=== PATIENT | male | born 1950 | race Caucasian/White ===

== ENCOUNTER 2016-11-12 19:03 | Emergency (ER) | payer MEDICARE, BC ==
[~2016-11-12] VITALS: Ht 177.8 cm; Wt 127.0 kg
[~2016-11-12 19:03] MED LIST: FLOMAX 0.4MG C0.4 MG PO; HYDROCODONE 7.51 TAB PO; NAPROXEN SODIU500 MG PO
[2016-11-12] MEDS ORDERED: ASPIRIN325 M1 PO (19:28)
[2016-11-12] MEDS ORDERED: PREDNISONE 20MG20 MG PO (21:33)
--- NOTE | 2016-11-12 21:34 | Emergency Room Report ---
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 PT RPTS HE FELL ONTO HIS RIGHT SHOULDER. PT DENIES HITTING HEAD OR LOC. 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 N Clinical Suspician of Infection? N Mental Status: 1 - Regular (Normal Baseline) Sepsis Risk:Low Sepsis Risk Have you (or family members/close friends) recently traveled outside the [place]? N If Yes, where/when: Have you had exposure to infectious disease within the past month? N TB? Other? Specify: Source patient, RN notes reviewed, family, old records Exam Limitations no limitations Comment fall in mud tonight with pain rt shoulder with dec rom - he took off shirt and felt pop and now much better Cardiac Chest Pain Chest pain indicative of cardiac No Timing/Duration this evening Severity moderate ALLERGIES Coded Allergies: No Known Allergies (11/12/16) Home Medications Reported Medications Aspirin 325 MG PO DAILY History Medical History General CAD? No Angina: No ID: No Hypertension? No Hyperlipidemia? No CHF? No DVT? No PE? No COPD? No Asthma? Yes Anemia? No GERD? No Gastric ulcers? No GI Bleed? No Hernia? No Thyroid Problems? No Hypothyroidism? No CVA? No Seizures? No Diabetes? No Renal Insuffiency? No End Stage Renal Disease? No UTI? Yes Stones? No BPH? No GB Disease: No Nephritic Syndrome? No Asplenia? No Hepatitis? No Sickle Cell Disease? No Arthritis? No Migraines? No Cataracts? No Glaucoma? No MRSA? No HIV? No TB? No Anxiety? No Depression? No Cancer? No More? Yes Additional hx: PANCREATITIS Immunization Hx DT/Tetanus 5-10 YRS Flu NEVER Pneumonia 5-10 YRS Surgical Hx Previous Surgery?Y RIGHT ANKLE SURGERY RIGHT EYE SURGERY Family History Family Hx Diabetes Yes CAD No Hypertension Yes Hyperlipidemia No Cancer Yes TB No Social History Smoking Hx Smoker: Former Smoker Tobacco: No Alcohol Alcohol: No Drugs none Review of Systems All Other Systems Reviewed and Negative Constitutional denies fever Eyes denies drainage ENT denies: ear pain, epistaxis, throat pain. Respiratory denies cough, denies shortness of breath, denies wheezing Cardiovascular denies chest pain, denies palpitations, denies syncope Gastrointestinal denies abdominal pain, denies diarrhea, denies vomiting Genitourinary denies: dysuria, frequency, hesitancy, hematuria. Musculoskeletal see HPI, denies back pain, joint pain, denies joint swelling, denies neck pain Skin denies rash Psychiatric/Neurological denies headache, denies seizure Physical Exam Vital Signs Vital Signs Date Time Temp Pulse Resp B/P Pulse O2 O2 Flow FiO2 Ox Delivery Rate 11/12 2052 99.9 61 18 127/79 99 11/12 1920 98.0 71 18 166/96 96 11/12 190 98.0 71 18 16696 96 - WBC >12,000 or <4,000 or 10% bands? 2 or more SIRS Criteria Met? B/P:127/79 MAP:119 Creatinine >2.0? UA output<0.5ml/kg/hr for 2 hrs? Platelet count >100,000? Lactate >2.0mmol/1? INR >1.2 or PTT > than 60 sec? Evidence of Organ Dysfunction? Provider documented clinical suspician of infection? N Sepsis Criteria Count: 0 Sepsis Risk: Low Sepsis Risk General Appearance no apparent distress Eye Exam - bilateral eye PERRL, bilateral eye EOMI Ear, Nose, Throat normal ENT inspection Neck non-tender Respiratory Status No: respiratory distress. 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 No Results/Orders Orders Procedure Date/time Status [id number] VIEWS 11/12 1928 Active XRAY/CT/US XRAY/CT/US XRAY shoulder XR interpretation by reviewed by me Xray Results no fracture seen, abnormal (djd) Departure Departure Time of Disposition 2126 Disposition DC Home or Self Care(routine) Clinical Impression Primary Impression: Shoulder pain, right Qualifiers: Chronicity: acute Qualified Code: M25.511 - Pain in right shoulder Condition STABLE Referrals ANDREAS DIAS (Family) Patient Instructions DI for Shoulder Pain Additional Instructions ice and use meds and see ortho if needed Discharge Counseling Counseled pt/family regarding diagnosis, test results, medications/RX, follow up needs Prescriptions Current Visit Scripts Prednisone (Prednisone 20MG) 20 MG PO BID #10 TAB ED Critical Care Critical Care No at [id number]
--- NOTE | 2016-11-12 21:34 | Emergency Room Report ---
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 PT RPTS HE FELL ONTO HIS RIGHT SHOULDER. PT DENIES HITTING HEAD OR LOC. 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 N Clinical Suspician of Infection? N Mental Status: 1 - Regular (Normal Baseline) Sepsis Risk:Low Sepsis Risk Have you (or family members/close friends) recently traveled outside the [place]? N If Yes, where/when: Have you had exposure to infectious disease within the past month? N TB? Other? Specify: Source patient, RN notes reviewed, family, old records Exam Limitations no limitations Comment fall in mud tonight with pain rt shoulder with dec rom - he took off shirt and felt pop and now much better Cardiac Chest Pain Chest pain indicative of cardiac No Timing/Duration this evening Severity moderate ALLERGIES Coded Allergies: No Known Allergies (11/12/16) Home Medications Reported Medications Aspirin 325 MG PO DAILY History Medical History General CAD? No Angina: No NV: No Hypertension? No Hyperlipidemia? No CHF? No DVT? No PE? No COPD? No Asthma? Yes Anemia? No GERD? No Gastric ulcers? No GI Bleed? No Hernia? No Thyroid Problems? No Hypothyroidism? No CVA? No Seizures? No Diabetes? No Renal Insuffiency? No End Stage Renal Disease? No UTI? Yes Stones? No BPH? No GB Disease: No Nephritic Syndrome? No Asplenia? No Hepatitis? No Sickle Cell Disease? No Arthritis? No Migraines? No Cataracts? No Glaucoma? No MRSA? No HIV? No TB? No Anxiety? No Depression? No Cancer? No More? Yes Additional hx: PANCREATITIS Immunization Hx DT/Tetanus 5-10 YRS Flu NEVER Pneumonia 5-10 YRS Surgical Hx Previous Surgery?Y RIGHT ANKLE SURGERY RIGHT EYE SURGERY Family History Family Hx Diabetes Yes CAD No Hypertension Yes Hyperlipidemia No Cancer Yes TB No Social History Smoking Hx Smoker: Former Smoker Tobacco: No Alcohol Alcohol: No Drugs none Review of Systems All Other Systems Reviewed and Negative Constitutional denies fever Eyes denies drainage ENT denies: ear pain, epistaxis, throat pain. Respiratory denies cough, denies shortness of breath, denies wheezing Cardiovascular denies chest pain, denies palpitations, denies syncope Gastrointestinal denies abdominal pain, denies diarrhea, denies vomiting Genitourinary denies: dysuria, frequency, hesitancy, hematuria. Musculoskeletal see HPI, denies back pain, joint pain, denies joint swelling, denies neck pain Skin denies rash Psychiatric/Neurological denies headache, denies seizure Physical Exam Vital Signs Vital Signs Date Time Temp Pulse Resp B/P Pulse O2 O2 Flow FiO2 Ox Delivery Rate 11/12 2052 99.9 61 18 127/79 99 11/12 1920 98.0 71 18 166/96 96 11/12 190 98.0 71 18 16696 96 - WBC >12,000 or <4,000 or 10% bands? 2 or more SIRS Criteria Met? B/P:127/79 MAP:119 Creatinine >2.0? UA output<0.5ml/kg/hr for 2 hrs? Platelet count >100,000? Lactate >2.0mmol/1? INR >1.2 or PTT > than 60 sec? Evidence of Organ Dysfunction? Provider documented clinical suspician of infection? N Sepsis Criteria Count: 0 Sepsis Risk: Low Sepsis Risk General Appearance no apparent distress Eye Exam - bilateral eye PERRL, bilateral eye EOMI Ear, Nose, Throat normal ENT inspection Neck non-tender Respiratory Status No: respiratory distress. 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 No Results/Orders Orders Procedure Date/time Status [id number] VIEWS 11/12 1928 Active XRAY/CT/US XRAY/CT/US XRAY shoulder XR interpretation by reviewed by me Xray Results no fracture seen, abnormal (djd) Departure Departure Time of Disposition 2126 Disposition DC Home or Self Care(routine) Clinical Impression Primary Impression: Shoulder pain, right Qualifiers: Chronicity: acute Qualified Code: M25.511 - Pain in right shoulder Condition STABLE Referrals ANDREAS DIAS (Family) Patient Instructions DI for Shoulder Pain Additional Instructions ice and use meds and see ortho if needed Discharge Counseling Counseled pt/family regarding diagnosis, test results, medications/RX, follow up needs Prescriptions Current Visit Scripts Prednisone (Prednisone 20MG) 20 MG PO BID #10 TAB ED Critical Care Critical Care No at 2358
[2016-11-12 21:46] VITALS: BP 127/79
--- NOTE | 2016-11-12 23:31 | RADIOLOGY REPORT PS360 ---
[id number] VIEWS Ordering Physician: Deangelo Haq MD Patient Age: 66 years: Male HISTORY: FALL without] with right shoulder pain. TECHNIQUE 3 views right shoulder . COMPARISON. None FINDINGS The humeral head and neck intact. No discrete acute fracture nor dislocation There is a small fragment off the superior margin of the glenoid. It seems to be corticated on these views and more likely an old dystrophic calcification or old injury. Doubt acute fracture. If there should be persistent pain at shoulder recommend MR to further evaluate. AC joint arthropathy and mild hypertrophy with downward spurring at the distal clavicle. The scapula appears intact. Upper right ribs and right lung apex intact. IMPRESSION: No discrete acute fracture. Note Small corticated appearing osseous fragment along superior margin of right glenoid. Favor most likely an old feature. Doubt, unlikely recent fracture The humeral head and neck intact.. With No fracture Mild AC joint arthropathy.
--- OUTSIDE RECORDS SUMMARY | 2016-11-13 08:39 | External Medical Summary Rpt ---
Author Author , Organization [employer] Address Unknown Phone Unavailable Purpose Continuity of Care Document - through 2016
--- OUTSIDE RECORDS SUMMARY | 2016-11-13 08:39 | External Medical Summary Rpt ---
Author Author [employer] Organization [employer] Address Unknown Phone Unavailable Purpose Continuity of Care Document - through 2016
--- OUTSIDE RECORDS SUMMARY | 2016-11-13 08:39 | External Medical Summary Rpt ---
Demographics Preferred Language Icelandic Marital Status Unknown Denominational Affiliation Unknown Race Unknown Ethnic Group Unknown Author Author , Organization [employer] Address Unknown Phone Unavailable Purpose Continuity of Care Document - through 2016 Immunization No patient found.
--- OUTSIDE RECORDS SUMMARY | 2016-11-13 08:39 | External Medical Summary Rpt ---
Demographics Preferred Language Sinhala Marital Status Unknown Denominational Affiliation Unknown Race Unknown Ethnic Group Unknown Author Author , Organization [employer] Address Unknown Phone Unavailable Purpose Continuity of Care Document - through 2016 Immunization No patient found.
--- OUTSIDE RECORDS SUMMARY | 2016-11-13 08:39 | External Medical Summary Rpt ---
Author Author [employer], [employer] Organization [employer] Address Unknown Phone Unavailable
== END 2016-11-12 21:49 | disposition home or self-care (01) ==
LOC: ER 19:03
DX: M25.511 Pain in right shoulder (principal); W18.30XA Fall on same level, unspecified, initial encounter; Y92.009 Unspecified place in unspecified non-institutional (private) residence as the place of occurrence of the external cause